=== PATIENT | male | born 1970 | race Asian ===

== ENCOUNTER 2017-05-21 17:36 | Emergency (ER) | payer OTHER ==
[2017-05-21 17:51] VITALS: BP 130/70; PULSE 70; RESP 14; TEMP 96.8; O2SAT 96
--- NOTE | 2017-05-21 17:57 | EDPHY ---
H & P Stated Complaint: hand injury Time Seen by Provider: 05/21/17 17:55 HPI/ROS: CHIEF COMPLAINT: Right hand injury HISTORY OF PRESENT ILLNESS: Patient is a 46-year-old man who was working and rotated his arm with his elbow bent at 90 degrees. He hit his hand on a nearby piece of equipment. He hit it on the corner. He is now complaining of pain over the 5th and 4th metacarpal bones. Minimal swelling. No bruising. No wrist pain or arm pain. No other injuries. REVIEW OF SYSTEMS: Constitutional: denies: chills, fever, recent illness, recent injury EENTM: denies: blurred vision, double vision, nose congestion Respiratory: denies: cough, shortness of breath Cardiac: denies: chest pain, irregular heart rate, lightheadedness, palpitations Gastrointestinal/Abdominal: denies: abdominal pain, diarrhea, nausea, vomiting, blood streaked stools Genitourinary: denies: dysuria, frequency, hematuria, pain Musculoskeletal: See HPI Skin: denies: lesions, rash, jaundice, bruising Neurological: denies: headache, numbness, paresthesia, tingling, dizziness, weakness Hematologic/Lymphatic: denies: blood clots, easy bleeding, easy bruising Immunologic/allergic: denies: HIV/AIDS, transplant EXAM: GENERAL: Well-appearing, well-nourished and in no acute distress. HEAD: Atraumatic, normocephalic. EYES: Pupils equal round and reactive to light, extraocular movements intact, sclera anicteric, conjunctiva are normal. ENT: TMs normal, nares patent, oropharynx clear without exudates. Moist mucous membranes. NECK: Normal range of motion, supple without lymphadenopathy or JVD. LUNGS: Breath sounds clear to auscultation bilaterally and equal. No wheezes rales or rhonchi. HEART: Regular rate and rhythm without murmurs, rubs or gallops. ABDOMEN: Soft, nontender, normoactive bowel sounds. No guarding, no rebound. No masses appreciated. BACK: No CVA tenderness, no spinal tenderness, step-offs or deformities EXTREMITIES: Right hand pain. No significant deformity. Neurovascularly intact. Normal hand genetics nurse thin finger movement. NEUROLOGICAL: Cranial nerves II through XII grossly intact. Normal speech, normal gait. 5/5 strength, normal movement in all extremities, normal sensation PSYCH: Normal mood, normal affect. SKIN: Warm, dry, normal turgor, no visible rashes or lesions. Source: Patient Exam Limitations: No limitations - Personal History Current Tetanus Diphtheria and Acellular Pertussis (TDAP): Yes - Medical/Surgical History Hx Asthma: No Hx Chronic Respiratory Disease: No Hx Diabetes: No Hx Cardiac Disease: No Hx Renal Disease: No Hx Cirrhosis: No Hx Alcoholism: No Hx HIV/AIDS: No Hx Splenectomy or Spleen Trauma: No Other PMH: none - Family History Significant Family History: No pertinent family hx - Social History Smoking Status: Current every day smoker Alcohol Use: Sober Drug Use: None Constitutional: Initial Vital Signs Temperature (C) 36 C 05/21/17 17:46 Heart Rate 70 05/21/17 17:46 Respiratory Rate 14 05/21/17 17:46 Blood Pressure 130/70 H 05/21/17 17:46 O2 Sat (%) 96 05/21/17 17:46 O2 Delivery Mode Room Air Allergies/Adverse Reactions: No Known Allergies Allergy (Unverified 05/21/17 17:46) Home Medications: Medication Instructions Recorded NK [No Known Home Meds] 05/21/17 Medical Decision Making - Diagnostics Imaging Results: Imaging Impressions Hand X-Ray 05/21/17 17:55 Impression: Mildly angulated fracture of the distal metadiaphysis right fifth metacarpal. Procedures: Procedure: Splint placement. A ulnar gutter splint was applied. After application of the splint I returned and re-examined the patient. The splint was adequately immobilizing the joint and distal to the splint the patient's circulation and sensation was intact. ED Course/Re-evaluation: The patient was placed in an ulnar gutter splint. He tolerated the procedure well. Have him follow up with Hand surgery. He is unlikely to require surgery. He says full function. He understands and agrees with this plan. Conversation had through professional informaticist. Differential Diagnosis: Partial list of the Differential diagnosis considered include but were not limited to; fracture, contusion and although unlikely based on the history and physical exam, I also considered dislocation, infection, hemorrhage, assault. I discussed these differential diagnoses and the plan with the patient as well as the usual and expected course. The patient understands that the diagnosis is provisional and that in medicine we are not always correct and that further workup is often warranted. Usual and customary warnings were given. All of the patient's questions were answered. The patient was instructed to return to the emergency department should the symptoms at all worsen or return, otherwise to followup with the physician as we discussed. Departure - Departure Disposition: Home, Routine, Self-Care Clinical Impression: Boxer's fracture Qualifiers: Encounter type: initial encounter Fracture type: closed Qualified Code(s): S62.309A - Unspecified fracture of unspecified metacarpal bone, initial encounter for closed fracture Condition: Fair Instructions: Boxer Fracture (ED) Referrals: Anil Bartholomew MD [Medical Doctor] - As per Instructions Stand Alone Forms: Work Excuse
== END 2017-05-21 18:50 | disposition home or self-care (01) ==
LOC: CED 17:36
DX: S62.306A Unspecified fracture of fifth metacarpal bone, right hand, initial encounter for closed fracture (principal); F17.200 Nicotine dependence, unspecified, uncomplicated; W22.8XXA Striking against or struck by other objects, initial encounter; Y92.69 Other specified industrial and construction area as the place of occurrence of the external cause; Y99.0 Civilian activity done for income or pay; Y93.89 Activity, other specified
CPT/HCPCS: 73130-PO